=== PATIENT | male | born 1960 | race Two or more races ===

== ENCOUNTER 2019-12-02 12:47 | Observation (INO) | payer MEDICARE, OTHER ==
[~2019-12-02] VITALS: Ht 182.9 cm; Wt 109.3 kg
[~2019-12-02 12:47] MED LIST: AMLODIPINE; ASPIRIN ENTERI325 MG PO; HYDROCHLOROTHIAZIDE; METOPROLOL TART25 MG PO; PLAVIX75 MG PO; PRAVASTATIN SOD20 MG PO
--- NOTE | 2019-12-02 12:50 | NUR ---
PATIENT IN TRIAGE AT THIS TIME, DR. CLINTON ASKED THE PATIENT IF HE HAD BEEN TESTED FOR COVID-19 AND THE PATIENT BECAME UPSET AND STATED THAT, "I HAVE CONGESTIVE HEART FAILURE, I KNOW IT IS NOT COVID!!", DR. CLINTON ASKED THE PATIENT THE 2ND TIME AND HE STATES, "JUST DO THE DAMN TEST!". BRANDI RN DOING AN EKG AT THIS TIME, PATIENT NEEDED AN IV FOR ACCESS AND BLOOD DRAW, ATTEMPTED TO PUT AN IV ON PATIENT AND PATIENT BECAME BELIGIRENT AND YANKED AWAY HIS ARM AND STATED, "WHO ARE YOU? WHY ARE YOU PUTTING AN IV? 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 CLINTON AND BRANDI RN AND MYSELF, PATIENT SITTING ON TRIAGE CHAIR AND BEING UNCOOPERATIVE AT THIS TIME
[2019-12-02 13:51] LABS: BASOPHILS # (AUTO) 0.1 (0.0-0.1); BASOPHILS % 0.7 % (0.0-1.0); EOSINOPHILS # (AUTO) 0.3 (0.0-0.4); EOSINOPHILS % 4.7 % (0.0-6.0); HEMOGLOBIN 10.8 g/dL (14.0-18.0); LYMPHOCYTES # (AUTO) 0.7 (1.0-3.2); LYMPHOCYTES % 9.8 % (18.0-39.1); MEAN CORPUSCULAR HEMOGLOBIN 22.7 pg (28-32); MEAN CORPUSCULAR HGB CONC 27.7 g/dL (31-35); MEAN CORPUSCULAR VOLUME 81.9 fL (81-99); MONOCYTES # (AUTO) 0.8 (0.2-0.8); MONOCYTES % 11.2 % (4.4-11.3); NEUTROPHILS # (AUTO) 5.2 (2.1-6.9); NEUTROPHILS % 73.2 % (38.7-80.0); PLATELET COUNT 253 x10e3/uL (140-360); RED BLOOD COUNT 4.76 x10e6/uL (4.3-5.7); RED CELL DISTRIBUTION WIDTH 19.2 % (11.7-14.4)
[2019-12-02 14:00] LABS: INR 1.13; PROTHROMBIN TIME 15.1 seconds (11.9-14.5)
[2019-12-02 14:01] LABS: PARTIAL THROMBOPLASTIN TIME 29.6 seconds (23.8-35.5)
[2019-12-02 14:08] LABS: ALBUMIN 3.8 g/dL (3.5-5.0); ALBUMIN/GLOBULIN RATIO 1.1 (0.8-2.0); ANION GAP 18.2 mmol/L (8-16); CALCIUM 8.3 mg/dL (8.4-10.2); CREATININE, SERUM 1.28 mg/dL (0.72-1.25); POTASSIUM 3.2 mmol/L (3.5-5.1)
[2019-12-02 14:14] LABS: CREATINE KINASE MB 2.7 ng/mL (0-5.0)
--- NOTE | 2019-12-02 14:26 | Diagnostic Imaging Report ---
EXAMINATION: CHEST SINGLE (PORTABLE) INDICATION: Shortness of breath COMPARISON: None FINDINGS: LINES/TUBES:None LUNGS:The lungs are well-inflated. There is perihilar fullness and indistinctness of the pulmonary vasculature. Hazy opacity at the lateral left lower lung. PLEURA:No pleural effusion or pneumothorax. MEDIASTINUM:The cardiomediastinal silhouette appears mildly enlarged in size and shape. BONES/SOFT TISSUES:No acute osseous injury. ABDOMEN:No free air under the diaphragm. IMPRESSION: Mild cardiomegaly and central pulmonary vascular congestion. Hazy left lower lung opacity. Superimposed aspiration or pneumonia should be excluded clinically. Signed by: Sukhi Estrada MD on 12/02/2019 2:23 PM
--- NOTE | 2019-12-02 15:38 | NUR ---
Assumed care of patient in room 11, pt initially difficult in triage. Pt reports he has been stuck so many times and he is irritable d/t difficulty with IV starts at other hospitals. Pt noted to have difficulty breathing +2 ble edema. PIV inserted x 1 attempt, noted multiple fresh needle luis from IV drug use. Noted pupils pin point. Pt refuses to wear monitoring analyst and pulse ox.
[2019-12-02] MEDS ORDERED: POTASSIUM CHLORIDE 20 MEQ TAB CR PO STA (15:44)
[2019-12-02] MEDS ORDERED: FUROSEMIDE INJ 10 MG/ML 4 ML VIAL IV ONE (15:45)
--- NOTE | 2019-12-02 15:45 | NUR ---
Pt assisted to RR, urine cup provided. Pt came out of RR without urine cup, unable find cup in RR. Pt would not answer question regarding urine specimen.
[2019-12-02] MEDS ORDERED: FUROSEMIDE INJ 10 MG/ML 4 ML VIAL ONE (16:03)
[2019-12-02] MEDS ORDERED: POTASSIUM CHLORIDE 20 MEQ TAB CR PO ONE (16:03)
--- NOTE | 2019-12-02 16:03 | Emergency Department Note ---
History of Present Illnes History of Present Illness Chief Complaint: Chest Pain History of Present Illness This is a 59 year old Other male c/o SOB. PT TWITCHING, REFUSING TO SIT FOR TRIAGE, BEGINS YELLING AND ARGUING. PT YELLED AT DOCTOR WHEN ASKED IF ANY COVID TESTING. PT THEN YELLED AT NURSING STAFF WHEN EXPLAINED ABOUT BLOOD DRAW. RAZ RN EXPLAINED PLAN OF CARE, PT CLOSES EYES AND JUMPS AND POSING THREATENING MANNER TO STAFF AND MD. PT REFUSED IV THEN BY 2ND NURSE. EKG DONE NON STEMI. VSS. SECURITY CALLED. 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 Any updates have been documented here. Past Medical History Recent Fever: No Clinical Suspicion of Infectio: No New/Unexplained Change in Ment: No Past Medical History: Hypertension, COPD, CHF, DC, CAD, Anxiety, Depression, Other Mental Illness, Hyperlipedemia Social History Smoking Cessation: Current every day smoker Counseling Performed: No Alcohol Use: Occasional Any Illegal Drug Use: Yes (HEROIN) Physically hurt or threatened: No Family History Family history of heart diseas: Yes Other Last Tetanus: UNKNOWN Any Pre-Existing Lines (PICC,: No Review of Systems Review of Systems Constitutional: Reports no symptoms EENTM: Reports no symptoms Cardiovascular: Reports no symptoms Respiratory: Reports as per HPI Gastrointestinal: Reports no symptoms Genitourinary: Reports no symptoms Musculoskeletal: Reports no symptoms Integumentary: Reports no symptoms Neurological: Reports no symptoms Psychological: Reports no symptoms Endocrine: Reports no symptoms Hematological/Lymphatic: Reports no symptoms Physical Exam Related Data Allergies: Coded Allergies: No Known Allergies (Unverified , 07/09/12) Triage Vital Signs Vital Signs Date Time Temp Pulse Resp B/P (MAP) Pulse Ox O2 Delivery O2 Flow Rate FiO2 12/02/19 12:52 97.8 68 20 169/90 96 Room Air Vital signs reviewed: Yes Physical Exam CONSTITUTIONAL Constitutional: Present well-developed, Present well-nourished HENT HENT: Present normocephalic, Present atraumatic, Present oropharynx clear/moist, Present nose normal HENT L/R: Present left ext ear normal, Present right ext ear normal EYES Eyes: Reports PERRL, Reports conjunctivae normal NECK Neck: Present ROM normal PULMONARY Pulmonary: Present effort normal, Present rales; Absent respiratory distress CARDIOVASCULAR Cardiovascular: Present regular rhythm, Present heart sounds normal, Present capillary refill normal, Present normal rate GASTROINTESTINAL Abdominal: Present soft, Present nontender, Present bowel sounds normal GENITOURINARY Genitourinary: Present exam deferred SKIN Skin: Present warm, Present dry MUSCULOSKELETAL Musculoskeletal: Present ROM normal, Present swelling (1+ BILAT LE EDEMA) NEUROLOGICAL Neurological: Present alert, Present oriented x 3, Present no gross motor or sensory deficits PSYCHOLOGICAL Psychological: Present mood/affect normal, Present judgement normal Results Laboratory Result Diagram: 12/02/19 1333 12/02/19 1333 Laboratory Laboratory Tests Test 12/02/19 13:33 12/02/19 13:29 White Blood Count 7.05 x10e3/uL (4.8-10.8) Red Blood Count 4.76 x10e6/uL (4.3-5.7) Hemoglobin 10.8 g/dL (14.0-18.0) Hematocrit 39.0 % (38.2-49.6) Mean Corpuscular Volume 81.9 fL (81-99) Mean Corpuscular Hemoglobin 22.7 pg (28-32) Mean Corpuscular Hemoglobin Concent 27.7 g/dL (31-35) Red Cell Distribution Width 19.2 % (11.7-14.4) Platelet Count 253 x10e3/uL (140-360) Neutrophils (%) (Auto) 73.2 % (38.7-80.0) Lymphocytes (%) (Auto) 9.8 % (18.0-39.1) Monocytes (%) (Auto) 11.2 % (4.4-11.3) Eosinophils (%) (Auto) 4.7 % (0.0-6.0) Basophils (%) (Auto) 0.7 % (0.0-1.0) Neutrophils # (Auto) 5.2 (2.1-6.9) Lymphocytes # (Auto) 0.7 (1.0-3.2) Monocytes # (Auto) 0.8 (0.2-0.8) Eosinophils # (Auto) 0.3 (0.0-0.4) Basophils # (Auto) 0.1 (0.0-0.1) Absolute Immature Granulocyte (auto 0.03 x10e3/uL (0-0.1) Prothrombin Time 15.1 seconds (11.9-14.5) Prothromb Time International Ratio 1.13 Activated Partial Thromboplast Time 29.6 seconds (23.8-35.5) Sodium Level 145 mmol/L (136-145) Potassium Level 3.2 mmol/L (3.5-5.1) Chloride Level 107 mmol/L (98-107) Carbon Dioxide Level 23 mmol/L (22-29) Anion Gap 18.2 mmol/L (8-16) Blood Urea Nitrogen 15 mg/dL (7-26) Creatinine 1.28 mg/dL (0.72-1.25) Estimat Glomerular Filtration Rate 58 ML/MIN (60-) BUN/Creatinine Ratio 12 (6-25) Glucose Level 144 mg/dL (74-118) Calcium Level 8.3 mg/dL (8.4-10.2) Total Bilirubin 2.2 mg/dL (0.2-1.2) Aspartate Amino Transf (AST/SGOT) 18 IU/L (5-34) Alanine Aminotransferase (ALT/SGPT) 14 IU/L (0-55) Alkaline Phosphatase 95 IU/L (40-150) Creatine Kinase 132 IU/L (30-200) Creatine Kinase MB 2.70 ng/mL (0-5.0) Troponin I 0.040 ng/mL (0-0.300) B-Type Natriuretic Peptide 952.3 pg/mL (0-100) Total Protein 7.3 g/dL (6.5-8.1) Albumin 3.8 g/dL (3.5-5.0) Globulin 3.5 g/dL (2.3-3.5) Albumin/Globulin Ratio 1.1 (0.8-2.0) Coronavirus (PCR) Not detected (NOTDETECTED) Lab results reviewed: Yes Imaging Imaging results reviewed: Yes Procedures 12 Lead ECG Interpretation ECG Interpretation : ECG: ECG 1 Glass Cutter Helper: Interpreted by ED physician Date: Dec 02, 2019 Time: 12:47 Rhythm: sinus rhythm Rate: normal (86) QRS axis: right ST segments normal: Yes T waves flattening: III, aVF Clinical Impression: abnormal ECG Assessment & Plan Medical Decision Making RYLEE PT WITH H/O CHF - CHECK CBC, CHEM, CARDIACS, ECG, CXR, UA/CX, BLOOD CX'S, COVID SWAB, UDS - EVAL FOR CHF, PNEUMONIA, COVID19, RENAL INSUFF, STEMI/NSTEMI Reassessment Reassessment ADMIT TO DR LAZAR, IV ABX'S, DIURETIC, REPLACE POTASSIUM Assessment & Plan Final Impression: (1) CHF (congestive heart failure) Depart Disposition: ADMITTED Last Vital Signs Date Time Temp Pulse Resp B/P (MAP) Pulse Ox O2 Delivery O2 Flow Rate FiO2 12/02/19 14:30 98.9 93 22 146/108 97 Room Air Home Meds Reported Medications Aspirin (ASPIRIN ENTERIC COATED) 325 Mg Tabec, 325 MG PO DAILY 07/11/12 Metoprolol Tartrate (METOPROLOL TARTRATE) 25 Mg Tablet, 25 MG PO BID 07/11/12 Pravastatin Sodium (PRAVASTATIN SODIUM) 20 Mg Tablet, 20 MG PO DAILY 07/11/12 Clopidogrel Bisulfate* (PLAVIX) 75 Mg Tablet, 75 MG PO DAILY 07/11/12 Medications in the ED Potassium Chloride 40 meq NOW STAT PO ; Start 12/02/19 at 15:44; Stop 12/02/19 at 15:54; Status DC Furosemide 40 mg ONCE ONCE IV ; Start 12/02/19 at 15:45; Stop 12/02/19 at 15:54; Status DC DORIAN CLINTON MD Dec 02, 2019 16:03
[2019-12-02] MEDS ORDERED: CEFTRIAXONE SOD 1 GM/NS 50 ML 50 ML IV ONE (16:15)
[2019-12-02] MEDS ORDERED: AZITHROMYCIN 500MG/NS 250 ML 250 ML IV ONE (16:15)
[2019-12-02] MEDS ORDERED: POTASSIUM CHLORIDE 10MEQ/100ML 300 ML IV ONE (16:15)
--- OUTSIDE RECORDS SUMMARY | 2019-12-02 16:21 | XMS REPORT | Continuity of Care Document ---
Author Author [facility] Organization [facility] Address [address] [place] [id number] Phone Unavailable Care Team Providers Care Pharmacy Technician Per Diem Name Role Phone León CLINTON Attphys Unavailable Problems This patient has no known problems. Allergies, Adverse Reactions, Alerts This patient has no known allergies or adverse reactions. Medications This patient has no known medications. Procedures This patient has no known procedures. Results Test Description Test Time Test Comments Results Result Comments Source CHEST SINGLE (PORTABLE) 2019-12-02 14:21:00 [facility] [address] [place] [address] Patient Name: HEATHER OMER MR #: [id number] : 1960 Age/Sex: 59/M Req #: [id number] Adm Physician: Ordered by: DROIAN CLINTON MD Report #: [id number] Location: ER Room/Bed: Procedure: [id number] DX/CHEST SINGLE (PORTABLE) Exam Date: 12/02/19 Exam Time: 1350 REPORT STATUS: Signed EXAMINATION: CHEST SINGLE (PORTABLE) INDICATION: Shortness of breath COMPARISON: None FINDINGS: LINES/TUBES:None LUNGS:The lungs are well-inflated. There is perihilar fullness and indistinctness of the pulmonary vasculature. Hazy o pacity at the lateral left lower lung. PLEURA:No pleural effusion or pneumothorax. MEDIASTINUM:The cardiomediastinal silhouette appears mildly enlarged in size and shape. BONES/SOFT TISSUES:No acute osseous injury. ABDOMEN:No free air under the diaphragm. IMPRESSION: Mild cardiomegaly and central pulmonary vascular congestion. Hazy left lower lung opacity. Superimposed aspiration or pneumonia should be excluded clinically. Signed by: Lilliam Castillo MD on 12/02/2019 2:23 PM Dictated By: LILLIAM CASTILLO MD [id number] Transcribed By: KIMBERLEE on 12/02/19 1423 COPY TO: DORIAN CLINTON MD
[2019-12-02] MEDS ORDERED: FUROSEMIDE INJ 10 MG/ML 4 ML VIAL IV SCH ×3 (17:00→21:00)
[2019-12-02 18:13] LABS: BILIRUBIN,URINE SMALL (NEGATIVE); CLARITY,URINE SL CLOUDY (CLEAR); COLOR,URINE STRAW (YELLOW); KETONES,URINE NEGATIVE (NEGATIVE); LEUKOCYTE ESTERASE ,URINE NEGATIVE (NEGATIVE); NITRITE,URINE NEGATIVE (NEGATIVE); PROTEIN,URINE DIPSTICK NEGATIVE (NEGATIVE); URINE UROBILINOGEN 4 mg/dL (0.2 - 1)
[2019-12-02 18:14] LABS: AMPHETAMINES SCREEN,URINE NEGATIVE (NEGATIVE); BENZODIAZEPINES SCREEN,URINE NEGATIVE (NEGATIVE); PHENCYCLIDINE SCREEN,URINE NEGATIVE (NEGATIVE)
[2019-12-02] MEDS ORDERED: ALBUTEROL/IPRATROPIUM 3 ML NEB NEB PRN ×2 (18:15→18:45)
--- NOTE | 2019-12-02 18:17 | NUR ---
Pt provided urine specimen, cup with urine sitting on bedside table. Pt sleeping quietly, intermittent leg jerking noted. Pts Sats while sleeping dropped to 81% on RA. Increased while, O2 @ 2L/NC applied. Pt's PIV infiltrated, after recieving rocephin. Removed PIV.
[2019-12-02 18:24] LABS: BACTERIA,URINE RARE /HPF; MUCUS,URINE FEW (RARE)
[2019-12-02] MEDS ORDERED: KETOROLAC TROMETHAMINE 30 MG/ML VIAL IV PRN (18:45)
[2019-12-02] MEDS ORDERED: HYDRALAZINE HCL 20 MG/ML VIAL IV PRN (18:45)
[2019-12-02] MEDS ORDERED: GUAIFENESIN 200 MG/10 ML UDC PO PRN (18:45)
[2019-12-02] MEDS ORDERED: ONDANSETRON HCL INJ 2MG/ML 2ML 2 MG/ML VIAL IV PRN (18:45)
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
[2019-12-02] MEDS ORDERED: ALBUTEROL/IPRATROPIUM 3 ML NEB NEB SCH (19:00)
[2019-12-03] MEDS ORDERED: FAMOTIDINE 20 MG TAB PO SCH (07:30)
[2019-12-03] MEDS ORDERED: AZITHROMYCIN 500MG/NS 250 ML 250 ML IV SCH (09:00)
[2019-12-03] MEDS ORDERED: CEFTRIAXONE SOD 1 GM/NS 50 ML 50 ML IV SCH (09:00)
[2019-12-03] MEDS ORDERED: POTASSIUM CHLORIDE 20 MEQ TAB CR PO SCH ×2 (09:00)
== END 2019-12-02 18:43 | disposition left against medical advice (07) ==
LOC: ER 13:20 → ERHOLD 16:11
PROVIDERS: ADMIT Internal Medicine; ATTEND Internal Medicine
DX: R07.9 Chest pain, unspecified (principal); J44.9 Chronic obstructive pulmonary disease, unspecified; I11.0 Hypertensive heart disease with heart failure; I50.9 Heart failure, unspecified; F32.9 Major depressive disorder, single episode, unspecified; E78.5 Hyperlipidemia, unspecified; I25.2 Old myocardial infarction; Z11.59 Encounter for screening for other viral diseases; I25.10 Atherosclerotic heart disease of native coronary artery without angina pectoris
CPT/HCPCS: 36415; 80053; 71045; 80307; 81001; 82550; 82553; 83880; 84484; 85025; 85610; 85730; 87040; 87086; 99284; G0378; J0456; J0696; J1940; U0002

== ENCOUNTER 2022-04-14 12:00 | Inpatient (IN) | payer OTHER ==
[~2022-04-14] VITALS: Ht 182.9 cm; Wt 109.3 kg
[2022-04-14] MEDS ORDERED: ASPIRIN 81 MG CHEW TAB PO ONE (12:15)
[2022-04-14 12:23] LABS: BASOPHILS # (AUTO) 0.1 (0.0-0.1); BASOPHILS % 0.7 % (0.0-1.0); EOSINOPHILS # (AUTO) 0.2 (0.0-0.4); EOSINOPHILS % 2.9 % (0.0-6.0); HEMOGLOBIN 16.2 g/dL (14.0-18.0); LYMPHOCYTES # (AUTO) 0.6 (1.0-3.2); LYMPHOCYTES % 7.2 % (18.0-39.1); MEAN CORPUSCULAR HEMOGLOBIN 29.8 pg (28-32); MEAN CORPUSCULAR HGB CONC 29.5 g/dL (31-35); MEAN CORPUSCULAR VOLUME 101.1 fL (81-99); MONOCYTES # (AUTO) 0.8 (0.2-0.8); MONOCYTES % 9.9 % (4.4-11.3); NEUTROPHILS # (AUTO) 6.3 (2.1-6.9); NEUTROPHILS % 78.9 % (38.7-80.0); PLATELET COUNT 153 x10e3/uL (140-360); RED BLOOD COUNT 5.44 x10e6/uL (4.3-5.7); RED CELL DISTRIBUTION WIDTH 17.2 % (11.7-14.4)
[2022-04-14 12:39] LABS: AMPHETAMINES SCREEN,URINE NEGATIVE (NEGATIVE); BENZODIAZEPINES SCREEN,URINE NEGATIVE (NEGATIVE); PHENCYCLIDINE SCREEN,URINE NEGATIVE (NEGATIVE)
[2022-04-14] MEDS ORDERED: HYDROXYZINE HCL 25 MG TAB PO ONE (12:45)
[2022-04-14 12:46] LABS: INR 1.1; PROTHROMBIN TIME 14.4 seconds (11.9-14.5)
[2022-04-14 12:53] LABS: ALBUMIN 3.6 g/dL (3.5-5.0); ALBUMIN/GLOBULIN RATIO 0.8 (0.8-2.0); ANION GAP 16.9 mmol/L (8-16); CREATININE, SERUM 0.93 mg/dL (0.72-1.25); POTASSIUM 3.9 mmol/L (3.5-5.1)
[2022-04-14 13:00] LABS: CREATINE KINASE MB 2.8 ng/mL (0-5.0)
[2022-04-14] MEDS ORDERED: IOPAMIDOL 370 MG/ML 100 ML INFUS..BTL INJ ONE (13:38)
[2022-04-14] MEDS ORDERED: SODIUM CHLORIDE 0.9% IV SCH (14:00)
[2022-04-14] MEDS ORDERED: BUMETANIDE IV SCH (14:00)
[2022-04-14] MEDS ORDERED: ONDANSETRON HCL INJ 2MG/ML 2ML 2 MG/ML VIAL IV PRN (14:15)
[2022-04-14] MEDS ORDERED: SODIUM CHLORIDE FLUSH 10 ML SYR INJ PRN (14:15)
[2022-04-14] MEDS ORDERED: BUMETANIDE INJ 0.25MG/ML 4ML VIAL IV ONE (14:15)
[2022-04-14 17:40] VITALS: BP 131/93
[2022-04-14] MEDS: ACETAMINOPHEN 325 MG TAB PO PRN ×2 (18:07→23:53)
[2022-04-14 18:25] VITALS: BP 131/93
[2022-04-14 21:00] VITALS: BP 134/90
[2022-04-14 21:36] VITALS: BP 134/90
[2022-04-15] VITALS (7 sets, daily range): BP systolic 103–146; BP diastolic 73–101
[2022-04-15] MEDS ORDERED: METOPROLOL SUCC25 MG PO (00:04)
[2022-04-15] MEDS ORDERED: CARVEDILOL3.125 MG PO (00:04)
[2022-04-15] MEDS ORDERED: BUMETANIDE1 MG PO (00:04)
[2022-04-15] MEDS ORDERED: SPIRONOLACTONE25 MG PO (00:04)
[2022-04-15] MEDS ORDERED: TRAZODONE HCL50 MG PO (00:04)
[2022-04-15] MEDS ORDERED: LISINOPRIL5 MG PO (00:04)
[2022-04-15] MEDS ORDERED: DIAZEPAM 5 MG TAB PO ONE (01:45)
[2022-04-15] MEDS: CLOPIDOGREL BISULFATE 75 MG TAB PO SCH (09:16)
[2022-04-15] MEDS: LISINOPRIL 10 MG TAB PO SCH (09:16)
[2022-04-15] MEDS: CARVEDILOL 3.125 MG TAB PO SCH ×2 (09:17→16:47)
[2022-04-15] MEDS: ACETAMINOPHEN 325 MG TAB PO PRN (09:18)
[2022-04-15] MEDS: BUMETANIDE 1 MG TAB PO SCH (09:18)
[2022-04-15] MEDS ORDERED: HYDROCODONE/APAP 10MG-325MG TAB PO PRN (23:00)
[2022-04-15] MEDS ORDERED: TRAZODONE HCL 50 MG TAB PO SCH (23:00)
[2022-04-16] VITALS: BP 127/97
[2022-04-16 04:00] VITALS: BP 90/66
[2022-04-16 08:08] VITALS: BP 119/83
[2022-04-16] MEDS: CLOPIDOGREL BISULFATE 75 MG TAB PO SCH (08:50)
[2022-04-16] MEDS: CARVEDILOL 3.125 MG TAB PO SCH (08:51)
[2022-04-16] MEDS: BUMETANIDE 1 MG TAB PO SCH (08:51)
[2022-04-16] MEDS: LISINOPRIL 10 MG TAB PO SCH (08:52)
[2022-04-16 09:03] VITALS: BP 119/83
== END 2022-04-16 10:00 | disposition home or self-care (01) | DRG 293 ==
LOC: ER 12:07 → ERHOLD 14:11 → MED/SURG3 17:08
PROVIDERS: ADMIT Internal Medicine; ATTEND Internal Medicine
DX: I11.0 Hypertensive heart disease with heart failure (principal); I50.9 Heart failure, unspecified; I25.10 Atherosclerotic heart disease of native coronary artery without angina pectoris; J44.9 Chronic obstructive pulmonary disease, unspecified; F41.9 Anxiety disorder, unspecified; I25.2 Old myocardial infarction; E78.5 Hyperlipidemia, unspecified; F32.A Depression, unspecified; I48.91 Unspecified atrial fibrillation; Z95.5 Presence of coronary angioplasty implant and graft; Z86.711 Personal history of pulmonary embolism; Z88.8 Allergy status to other drugs, medicaments and biological substances; Z79.82 Long term (current) use of aspirin; Z79.02 Long term (current) use of antithrombotics/antiplatelets; Z79.899 Other long term (current) drug therapy; Z98.890 Other specified postprocedural states
CPT/HCPCS: 36415; 71045; 71260; 80053; 80307; 82550; 82553; 83880; 84484; 85025; 85610; 93005; 93971; 99284; J3410; Q9967

== ENCOUNTER 2022-05-02 03:02 | Observation (INO) | payer OTHER ==
[~2022-05-02] VITALS: Ht 182.9 cm; Wt 109.3 kg
[2022-05-02] VITALS (10 sets, daily range): BP systolic 114–139; BP diastolic 82–106
[~2022-05-02 03:02] MED LIST changes: +BUMETANIDE1 MG PO; +CARVEDILOL3.125 MG PO; +LISINOPRIL5 MG PO; +METOPROLOL SUCC25 MG PO; +SPIRONOLACTONE25 MG PO; +TRAZODONE HCL50 MG PO
[2022-05-02] MEDS ORDERED: SODIUM CHLORIDE FLUSH 10 ML SYR IV PRN (03:17)
[2022-05-02] MEDS ORDERED: METHYLPREDNISOLONE SOD SUCC 125 MG/2ML VIAL IV ONE (03:30)
[2022-05-02] MEDS ORDERED: ASPIRIN 325 MG TAB PO ONE (03:30)
[2022-05-02] MEDS ORDERED: ALBUTEROL/IPRATROPIUM 3 ML NEB NEB ONE (03:30)
[2022-05-02 03:31] LABS: BASOPHILS # (AUTO) 0.1 (0.0-0.1); EOSINOPHILS # (AUTO) 0.3 (0.0-0.4); EOSINOPHILS % 4.5 % (0.0-6.0); HEMATOCRIT 53.8 % (38.2-49.6); HEMOGLOBIN 15.9 g/dL (14.0-18.0); LYMPHOCYTES # (AUTO) 1.1 (1.0-3.2); LYMPHOCYTES % 16.3 % (18.0-39.1); MEAN CORPUSCULAR HEMOGLOBIN 30.7 pg (28-32); MEAN CORPUSCULAR HGB CONC 29.6 g/dL (31-35); MEAN CORPUSCULAR VOLUME 103.9 fL (81-99); MONOCYTES # (AUTO) 0.7 (0.2-0.8); MONOCYTES % 10.5 % (4.4-11.3); NEUTROPHILS # (AUTO) 4.7 (2.1-6.9); NEUTROPHILS % 67.4 % (38.7-80.0); PLATELET COUNT 108 x10e3/uL (140-360); RED BLOOD COUNT 5.18 x10e6/uL (4.3-5.7); RED CELL DISTRIBUTION WIDTH 15.3 % (11.7-14.4)
[2022-05-02 03:42] LABS: INR 1.02; PROTHROMBIN TIME 13.6 seconds (11.9-14.5)
[2022-05-02 03:43] LABS: PARTIAL THROMBOPLASTIN TIME 24.1 seconds (23.8-35.5)
[2022-05-02 03:50] LABS: ALBUMIN 3.4 g/dL (3.5-5.0); ALBUMIN/GLOBULIN RATIO 0.7 (0.8-2.0); ANION GAP 12.6 mmol/L (8-16); CALCIUM 9.2 mg/dL (8.4-10.2); CREATININE, SERUM 0.93 mg/dL (0.72-1.25); POTASSIUM 4.6 mmol/L (3.5-5.1)
[2022-05-02 04:03] LABS: CLARITY,URINE CLEAR (CLEAR); COLOR,URINE YELLOW (YELLOW); KETONES,URINE NEGATIVE (NEGATIVE); LEUKOCYTE ESTERASE ,URINE NEGATIVE (NEGATIVE); NITRITE,URINE NEGATIVE (NEGATIVE); PROTEIN,URINE DIPSTICK NEGATIVE (NEGATIVE); URINE UROBILINOGEN 0.2 mg/dL (0.2 - 1)
[2022-05-02 04:06] LABS: AMPHETAMINES SCREEN,URINE NEGATIVE (NEGATIVE); BACTERIA,URINE RARE /HPF; BENZODIAZEPINES SCREEN,URINE NEGATIVE (NEGATIVE); EPITHELIAL CELLS,URINE FEW /LPF; PHENCYCLIDINE SCREEN,URINE NEGATIVE (NEGATIVE); WBC,URINE (MAN) 0-5 /HPF (0-5)
[2022-05-02] MEDS ORDERED: FUROSEMIDE INJ 10 MG/ML 4 ML VIAL IV ONE (05:15)
[2022-05-02] MEDS ORDERED: ONDANSETRON HCL INJ 2MG/ML 2ML 2 MG/ML VIAL IV PRN (05:15)
[2022-05-02] MEDS ORDERED: ALBUTEROL/IPRATROPIUM 3 ML NEB NEB PRN (05:30)
[2022-05-02 17:03] LABS: CREATINE KINASE MB 3.8 ng/mL (0-5.0)
[2022-05-02] MEDS ORDERED: TRAZODONE HCL 50 MG TAB PO SCH (23:30)
[2022-05-02] MEDS: BUMETANIDE 1 MG TAB PO SCH (23:30)
[2022-05-02] MEDS: PRAVASTATIN 20 MG TAB PO SCH (23:30)
[2022-05-02] MEDS: CARVEDILOL 3.125 MG TAB PO SCH (23:37)
[2022-05-02] MEDS: CLOPIDOGREL BISULFATE 75 MG TAB PO SCH (23:38)
[2022-05-02] MEDS: SPIRONOLACTONE 25 MG TAB PO SCH (23:38)
[2022-05-03 00:20] VITALS: BP 126/88
[2022-05-03 04:00] VITALS: BP 121/77
[2022-05-03 04:04] VITALS: BP 126/90
[2022-05-03 08:00] VITALS: BP 130/96
[2022-05-03 08:12] VITALS: BP 130/96
[2022-05-03] MEDS: BUMETANIDE 1 MG TAB PO SCH (08:57)
[2022-05-03] MEDS: CARVEDILOL 3.125 MG TAB PO SCH (08:57)
[2022-05-03] MEDS: CLOPIDOGREL BISULFATE 75 MG TAB PO SCH (08:57)
[2022-05-03] MEDS: SPIRONOLACTONE 25 MG TAB PO SCH (08:57)
[2022-05-03] MEDS: PRAVASTATIN 20 MG TAB PO SCH (08:58)
[2022-05-03] MEDS ORDERED: LISINOPRIL 10 MG TAB PO SCH (09:00)
[2022-05-03] MEDS ORDERED: ASPIRIN 325 MG TAB EC PO SCH (09:00)
[2022-05-03] MEDS ORDERED: METOPROLOL TARTRATE 25 MG TAB PO SCH (09:00)
[2022-05-03] MEDS ORDERED: METOPROLOL SUCCINATE 25 MG TAB XL PO SCH (09:00)
[2022-05-03 12:00] VITALS: BP 120/102
== END 2022-05-03 15:15 | disposition left against medical advice (07) ==
LOC: ER 03:06 → INTOOBSV 05:17 → ERHOLD 05:17 → MED/SURG 13:40
PROVIDERS: ADMIT Internal Medicine; ATTEND Internal Medicine
DX: J44.1 Chronic obstructive pulmonary disease with (acute) exacerbation (principal); F14.10 Cocaine abuse, uncomplicated; I11.0 Hypertensive heart disease with heart failure; I50.9 Heart failure, unspecified; I25.2 Old myocardial infarction; Z20.822 Contact with and (suspected) exposure to COVID-19; F41.9 Anxiety disorder, unspecified; F32.A Depression, unspecified; E78.5 Hyperlipidemia, unspecified; I25.10 Atherosclerotic heart disease of native coronary artery without angina pectoris; Z95.5 Presence of coronary angioplasty implant and graft; Z88.8 Allergy status to other drugs, medicaments and biological substances
CPT/HCPCS: 36415; 71045; 80053; 80307; 81001; 82550; 82553; 83880; 84484; 85025; 85610; 85730; 94640; 94799 ×2; 99284; G0378 ×2; J1940; J2930; U0002